=== PATIENT | male | born 1980 | race Caucasian/White ===

== ENCOUNTER 2016-08-30 22:34 | Emergency (ER) | payer SELFPAY ==
[~2016-08-30] VITALS: Ht 167.6 cm; Wt 80.0 kg
[~2016-08-30 22:34] MED LIST: IBUP-1724 PO
--- OUTSIDE RECORDS SUMMARY | 2016-08-30 22:38 | XMS REPORT | Continuity of Care Document ---
Author Author [facility] Organization [facility] Address Unknown Phone Unavailable Support Name Relationship Address Phone SEPTEMBER, JA M DO Caregiver [address] [place] [address] Unavailable MARGARET CADET Next Of Kin [address] [place], [place] [address] Insurance Providers Guarantor Sumeet Gaitan Address [address] [place] [address] Email 08-05-16 Payer Workers Compensation Subscriber's Name Sumeet Gaitan Relationship 18 Self Chief Complaint and Reason for Visit Chief Complaint Upper Extremity Pain Reason for Visit Shoulder pain, left Problems Active Problems Medical Problem Onset Date Status Bronchitis Unknown Acute Shoulder pain, left Unknown Tobacco use Unknown Acute Past Problems Medical Problem Onset Date Injury of left shoulder Unknown Medications Current Home Medications Medication Dose Units Route Directions Days Qty Instructions Start Date Ibuprofen 200 Mg Tablet 800 Mg Oral Every 8 Hours as needed for Pain 03/24/16 Social History Social History Problem Response Recorded Date/Time Onset Date Status Hx Substance Use No 08/05/2016 9:45pm Not Applicable Not Applicable Hx Alcohol Use Y SOCIALLY 08/05/2016 9:45pm Not Applicable Not Applicable Query Response Start Date Stop Date Smoking Status Current every day smoker Hospital Discharge Instructions No hospital discharge instructions. Plan of Care Discharge Date 08/05/16 11:15pm Disposition 01 DISCHARGED HOME, SELF-CARE Condition at Discharge Improved Instructions/Education Provided Rotator Cuff Tendinitis (ED) Prescriptions See Medication Section Referrals [facility] Additional Instructions/Education We did not find a cause for your shoulder pain. Use the shoulder brace as instructed; when this wears out, another can be obtained inexpensively from [employer], [employer], etc. Pre-dose with naproxen and ice prior to performing physical therapy. Take the norco only as needed for pain at night or after PT. If you cannot get the MRI in [place], then arrange to travel back to [place] to complete the MRI/workman's comp case. Follow up with your doctor. Care Plan and Goals Physician Care Plan Problem: Shoulder pain Goal: Follow up with primary care provider Instructions: Take medications and follow care plan as discussed/written Functional Status No functional status results. Allergies, Adverse Reactions, Alerts Allergen Type Severity Reaction Status Last Updated Penicillin Allergy Unknown Active 08/05/16 Morphine Allergy Unknown Active 08/05/16 Amoxicillin Allergy Unknown Active 08/05/16 Immunizations Query Response on File Recorded Date/Time Influenza Vaccine Hx NO 08/05/16 9:45pm Tdap Vaccine Hx UTD PER PT 03/24/16 9:45pm Vital Signs Acute Vital Signs Vital Response Date/Time Temperature (Fahrenheit) 98.4 deg F (96.8 - 99.1) 08/05/2016 11:15pm Temperature (Calculated Celsius) 36.11921 degrees C (36.0 - 37.3) 08/05/2016 11:15pm Pulse Rate (adult) 80 bpm (60 - 100) 08/05/2016 11:15pm Respiratory Rate 14 breaths/min (10 - 20) 08/05/2016 11:15pm O2 Sat by Pulse Oximetry 98 % (90 - 100) 08/05/2016 11:15pm Blood Pressure 154/89 mm Hg 08/05/2016 11:15pm Height (Feet) 5 feet 08/05/2016 9:24pm Height (Inches) 7.00 inches 08/05/2016 9:24pm Weight (Kilograms) 98.300 kg 08/05/2016 9:24pm Body Mass Index (BMI) 33.0 08/05/2016 9:24pm Results No known relevant diagnostic tests, laboratory data and/or discharge summary. Procedures No known history of procedures. Encounters Encounter Location Arrival/Admit Date Discharge/Depart Date Attending Provider Departed Emergency Room [facility] 08/05/16 9:07pm 08/05/16 11: 15pm JA GONZALEZ DO Departed Emergency Room [facility] 05/16/16 8:46pm 05/16/16 9: 50pm SHRADDHA GALE MD Recent Diagnosis
[2016-08-30 22:52] VITALS: Ht 167.6 cm; Wt 80.0 kg
[2016-08-30] MEDS ORDERED: NO DAILY MEDS (23:13)
--- NOTE | 2016-08-30 23:20 | NUR ---
PROVIDER DR. GONZALEZ WITH PT.
[2016-08-30] MEDS ORDERED: HYDROCODONE/APAP 5 mg/325 mg TABLET PO ONE (23:30)
[2016-08-30] MEDS ORDERED: ONDANSETRON ODT 4 MG TAB PO ONE (23:30)
--- NOTE | 2016-08-30 23:31 | ERPDOC ---
Departure Disposition Decision Date: Aug 31, 2016 Disposition Decision Time: 00:30 Disposition: 01 DISCHARGED HOME, SELF-CARE Impression Impression Impression: Primary Impression: Dental abscess Additional Impression: Sinusitis Qualified Codes: J01.00 - Acute maxillary sinusitis, unspecified Severity: Moderate Condition: Improved Seen By: Physician only Referrals: [facility] 1 Week Patient Instructions: Dental Abscess (ED), Sinusitis (ED) Problems/Meds/Labs Reviewed?: Yes Medications reviewed and manag: Yes Additional Instructions: We have evaluated you for several concerns. We found a sinus infection and several dental infections. You will need to see a dentist to fix this. The antibiotics and pain meds will help with symptoms until you can be seen by a dentist. [facility] has a low-cost dentist, and there are several discount dentists in [place]. Follow up care ordered?: Yes Mental Status: Alert, Oriented Scripts Hydrocodone/Acetaminophen (Seward 5-325 Tablet) 5-325 Tablet 1 TAB PO Q6HR Y for PAIN, #20 TAB 0 Refills Prov: SEPTEMBERJA DO 08/31/16 Clindamycin HCl (Clindamycin HCl) 300 Mg Capsule 1 CAP PO QID for 14 Days, #56 CAP TAKE WITH A FULL GLASS OF WATER TO AVOID ESOPHAGEAL IRRITATION. Prov: SEPTEMBERJA DO 08/31/16 HPI - EENT General General Chief Complaint: Toothache Stated Complaint: LIP AND MOUTH PAIN Time Seen by Provider: 23:16 Source: patient Exam Limitations: no limitations HPI - EENT General Initial Comments 35yo man presents to the ER tonight with facial pain. Pt was attempting to lift a piece of metal tonight with a magnet. The magnet was not secured and hit pt in the face. Now he has pain over his anterior left, upper lip and left nasal pain with coughing/sneezing. Occurred At: work Onset/Timing: Rapid Duration: 1-3 hrs Pain/Severity Scale: Now & Worst: 6/10 Severity: moderate Location: nose, mouth 1 - Pain, swollen lip 2 - Pain with coughing/sneezing Prearrival Treatment: over the counter meds Modifying Factors: IMPROVES WITH: rest, WORSE WITH: activity, coughing Associated Symptoms: facial pain/swelling, nasal congestion/drainage Quality: throbbing, sharp Allergies: Coded Allergies: Penicillins (Verified Allergy, Unknown, 08/30/16) amoxicillin (Verified Allergy, Unknown, 08/30/16) morphine (Verified Allergy, Unknown, 08/30/16) Past History Patient Medical History (1) Tobacco use (2) Shoulder pain, left Surgical History Denies Surgeries Social History Does patient use chewing tobac: No Second Hand Exposure: No Substance Use Type: does not use Alcohol Intake: none Review of Systems ENMT Nose: pain, DENIES: change in smell, foreign body, nosebleeds, obstruction Mouth/Throat: see HPI Teeth: chipped/cracked tooth, missing teeth All other Systems All Other Systems: Reviewed and Negative Physical Exam General General Nourishment: well nourished, well developed, appears stated age, no acute distress, adult, obese General Body Habitus: disheveled Vitals and Pain Weight: Kilograms: 80.000 Height (feet): 5 Height (inches): 6.00 Triage Pain Scale: RN VS reviewed by Provider: Yes ENMT (brief) ENMT Brief: FOUND: mucosa moist, normal tonsils, NOT FOUND: normal dentition ( Significantly erroded and carried teeth throughout with several missing teeth.) , pharnyx erythema, tonsillar deviation Comments Swollen lip without laceration. Left nare ttp. Supervisory Exam Eyes: PERRL Nares: no exudate Neck: trachea midline Chest: symmetric Abdomen: non-distended Musculoskeletal: no deformity or atrophy Neurological: no abnormal movements Skin: pink, dry Psychological: alert Differential Diagnoses Considering: Abrasion, Abscess, Cellulitis, Contusion, Anterior Epistaxis, Nasal Foreign Body, Fracture, Laceration, Sinusitis, URI Progress Results/Orders Orders Procedure Category Date Status Time Ct Maxillofacial W/O CT 08/30/16 Resulted Contrast 23:27 Hydrocodone/Acetaminophen PHA 08/30/16 Complete (Seward 5/325) 23:30 Ondansetron Odt PHA 08/30/16 Complete (Zofran Odt) 23:30 Medications Current ED Medications Acetaminophen/ Hydrocodone Bitart (Seward 5/325) 1 tab O ONCE PO Last administered on 08/30/16 23:45; Start 08/30/16 at 23:30; Stop 08/30/16 at 23:31; Status DC Ondansetron HCl (Zofran Odt) 4 mg O ONCE PO Last administered on 08/30/16 23: 44; Start 08/30/16 at 23:30; Stop 08/30/16 at 23:31; Status DC CT CT : CT: Other (Maxillofacial) Interpretation: Abnormal (Maxillary dental abscesses and maxillary sinusitis ), Reviewed Written Report SEPTEMBERJA DO Aug 30, 2016 23:31 CT : CT: Other (Maxillofacial) Interpretation: Abnormal (Maxillary dental abscesses and maxillary sinusitis ), Reviewed Written Report SEPTEMBERJA DO Aug 30, 2016 23:31
--- NOTE | 2016-08-30 23:43 | NUR ---
CT PT RETURNED FROM CT.
[2016-08-31] MEDS ORDERED: CLIN300C86 PO (00:30)
[2016-08-31] MEDS ORDERED: HYDR-4246 PO (00:30)
[2016-08-31 00:50] VITALS: BP 147/95; PULSE 81; RESP 14; TEMP 98.3; O2SAT 94
--- NOTE | 2016-08-31 08:01 | DI ---
Indication: ITS.REASON: Facial trauma this morning with pain. PROCEDURE: CT MAXILLOFACIAL W/O CONTRAST: Encounter: Initial Comparison: None Technique: Axial noncontrast CT images through the mid face were performed with coronal and sagittal two-dimensional reformats. Automated Exposure Control and Iterative Reconstruction dose reducing techniques were utilized. Findings: Moderate mucosal thickening in the left maxillary sinus. The remaining paranasal sinuses are essentially clear. Severe periodontal and dental disease with numerous dental caries and periapical abscesses. Leftward nasal septal deviation. No acute maxillofacial fracture identified. The globes are intact. The lenses are located. Impression: No acute fracture. There is a preliminary report by [facility]. .
== END 2016-08-31 00:50 | disposition home or self-care (01) ==
LOC: ED 22:34
DX: K04.7 Periapical abscess without sinus (principal); J01.00 Acute maxillary sinusitis, unspecified; S09.90XA Unspecified injury of head, initial encounter; W22.8XXA Striking against or struck by other objects, initial encounter; Y93.89 Activity, other specified; Y92.9 Unspecified place or not applicable; Y99.0 Civilian activity done for income or pay